=== PATIENT | female | born 1990 | race Caucasian/White ===

== ENCOUNTER → 2019-04-09 16:18 | Outpatient (CLI) | payer MEDICAID, SELFPAY ==
[2019-04-09 15:41] VITALS: BMI 32.5
[2019-04-09 21:51] LABS: Chlamydia Trachomatis by PCR Negative (Negative); Neisserai gonorrhoeae by PCR Negative (Negative); Probe Check PASS; Sample Adequacy Control PASS; Specimen Processing Control PASS
[2019-04-16 14:27] LABS: HPV Reflexed? NOT INDICATED
== END ==
PROVIDERS: Referring Provider Nurse Practitioner Women's Health; Visit Provider Nurse Practitioner Women's Health
DX: Z12.4 Encounter for screening for malignant neoplasm of cervix (principal); Z11.3 Encounter for screening for infections with a predominantly sexual mode of transmission; N89.8 Other specified noninflammatory disorders of vagina
CPT/HCPCS: 87070; 87205; 87491; 87591; 88175; G0145

== ENCOUNTER → 2020-08-15 | Outpatient (CLI) | payer MEDICAID, SELFPAY ==
[2020-08-15 15:02] VITALS: BMI 30.2
[2020-08-19 20:46] LABS: HPV APTIMA, High Risk Positive (Negative)
== END | disposition home or self-care (01) ==
PROVIDERS: Referring Provider Obstetrics & Gynecology; Visit Provider Obstetrics & Gynecology
DX: Z12.4 Encounter for screening for malignant neoplasm of cervix (principal)
CPT/HCPCS: 87624; 88175; G0145

== ENCOUNTER → 2020-09-29 16:23 | Outpatient (CLI) | payer MEDICAID, SELFPAY ==
--- NOTE | 2020-09-29 | CER_PTH ---
PATIENT: NOÉ RAMSEY LOC: [facility] U#:[id number] AGE/SX: 34/F ROOM: RE09/29/[address]: Dr. Pastora Gonzales MD : 1990 BED: DIS: SPEC #: [id number] RECD: 09/29/20 16:03 STATUS: GERMAN CHRISTEN #: [id number] NANCY: 09/29/20 00:[address]: Pastora Gonzales DEPT: SURGICAL PATHOLOGY RECD BY: Jamila Varma ENTERED: 09/30/20 06:23 SP TYPE: CERV OTHR DR: No Primary Care Phys Tissues: A - Uterine cervix, NOS B - Endocervical Procedures: Surgery Specimen Level IV HEADER OPERATION: Colposcopy PRE-OP DIAGNOSIS: LGSIL pap of cervix TISSUE SUBMITTED: A - 8 o'clock, B - ECC MICROSCOPIC DIAGNOSIS A. Cervix, 8 o'clock, biopsy: Severe squamous dysplasia (HGSIL and AARON III). See comment. B. ECC: Fragments of benign ecto- and endocervical epithelium, negative for dysplasia. SHANTI:tip 10/03/2020 COMMENT Immunohistochemistry ([id number]) for surrogate HPV marker (p16) supports the above diagnosis. Case has been reviewed in consultation with Dr. Steward who concurs with the above diagnosis. IDC:AM MICROSCOPIC DESCRIPTION Slides are reviewed. GROSS DESCRIPTION A - Received in fixative is one container labeled with the patient's name and designated 8 o'clock. The specimen consists of multiple irregular fragments of light coughlin soft tissue that in aggregate measure 0.4 x 0.2 x 0.1 cm. The specimen is totally submitted in one cassette. B - Received in fixative is one container labeled with the patient's name and designated ECC. The specimen consists of multiple irregular fragments of coughlin mucoid tissue that in aggregate measure 1 x 0.2 x 0.1 cm. The specimen is totally submitted in one cassette. / SHANTI:tip 09/30/20 TC:5 CPT: 72437 x2
--- NOTE | 2020-09-29 | IMM_PTH ---
PATIENT: NOÉ RAMSEY LOC: [facility] U#:[id number] AGE/SX: 34/F ROOM: RE09/29/[address]: Dr. Pastora Gonzales MD : 1990 BED: DIS: SPEC #: [id number] RECD: 10/03/20 13:52 STATUS: GERMAN REQ #: [id number] NANCY: 09/29/20 00:[address]: Pasotra Gonzales DEPT: IMMUNOHISTOCHEMISTRY RECD BY: Mai Anderson ENTERED: 10/03/20 13:53 SP TYPE: IMMUNO OTHR DR: No Primary Care Phys Tissues: A - Uterine cervix, NOS Procedures: p16 (initial) KI-67 (add) PHYSICIAN & INSTITUTION [place] [address] SPECIMEN INFORMATION: Tissue Source: A - Cervix at 8 o'clock Clinical Info: [facility] Specimen Number: [id number] CPT code: 85704, 75242 METHODOLOGY: Deparaffinized sections of prefer/formalin-fixed tissue or PAP/DQ stained slides are incubated with monoclonal/polyclonal antibodies/oligonucleotide probes. Localization is made via biotin free immunoperoxidase method. Appropriate controls are performed and reacted as expected. Results on target cell population are indicated in the following table: RESULTS: ANTIBODY / CLONE RESULT Block A P16 (E6H4) positive, block staining Ki-67 (30-9) positive, moderate These tests were developed and their performance characteristics determined by [facility]. They may not have been cleared or approved by the U.S. Food and Drug Administration. The FDA has determined that such clearance or approval is not necessary. The above immunohistochemical/dualISH markers are ordered and reviewed by the Pathologist. INTERPRETATION: A. Cervix at 8 o'clock, biopsy: Severe squamous dysplasia. SJ:tip 10/04/2020
[2020-09-29 10:17] VITALS: BMI 29.7
== END ==
PROVIDERS: Referring Provider Obstetrics & Gynecology; Visit Provider Obstetrics & Gynecology
DX: R87.612 Low grade squamous intraepithelial lesion on cytologic smear of cervix (LGSIL) (principal)
CPT/HCPCS: 88305; 88341; 88342

== ENCOUNTER → 2020-10-08 10:34 | Outpatient (CLI) | payer MEDICAID, SELFPAY ==
[2020-09-29 10:17] VITALS: BMI 29.7
--- NOTE | 2020-09-30 08:42 | US_ITS ---
EXAM: US PELVIS TRANSABDOMINAL, COMPLETE CLINICAL INDICATION: dysmenorrhea TECHNIQUE: Transabdominal pelvic ultrasound was performed with grayscale and color Doppler imaging. This report was created using [employer] report [employer] technology. COMPARISON: None. FINDINGS: UTERUS/CERVIX: Uterus measures 9.0 x 6.4 x 4.6 cm. Endometrial complex measures 11 mm. Anteverted. There is no uterine mass. RIGHT OVARY: Right ovary measures 3.6 x 3.0 x 2.0 cm. Blood flow is present in the right ovary. LEFT OVARY: Left ovary measures 3.7 x 2.7 x 1.7 cm. Blood flow is present in the left ovary. FREE FLUID: There is minimal, physiologic quantity of free fluid in the dependent pelvis. BLADDER: Unremarkable as visualized. Wall is normal thickness for degree of distention. US/Pelvic (Non ) IMPRESSION: No adnexal or uterine masses. Electronically Signed: River Lobato MD (Brooks) at 17:44 EDT , Service support ,
--- NOTE | 2020-09-30 08:42 | US_ITS ---
EXAM: US PELVIS TRANSABDOMINAL, COMPLETE CLINICAL INDICATION: dysmenorrhea TECHNIQUE: Transabdominal pelvic ultrasound was performed with grayscale and color Doppler imaging. This report was created using [employer] report [employer] technology. COMPARISON: None. FINDINGS: UTERUS/CERVIX: Uterus measures 9.0 x 6.4 x 4.6 cm. Endometrial complex measures 11 mm. Anteverted. There is no uterine mass. RIGHT OVARY: Right ovary measures 3.6 x 3.0 x 2.0 cm. Blood flow is present in the right ovary. LEFT OVARY: Left ovary measures 3.7 x 2.7 x 1.7 cm. Blood flow is present in the left ovary. FREE FLUID: There is minimal, physiologic quantity of free fluid in the dependent pelvis. BLADDER: Unremarkable as visualized. Wall is normal thickness for degree of distention. US/Transvaginal Non- IMPRESSION: No adnexal or uterine masses. Electronically Signed: River Lobato MD (Brooks) at 17:44 EDT , Service support ,
== END ==
PROVIDERS: Referring Provider Obstetrics & Gynecology; Visit Provider Obstetrics & Gynecology
DX: N94.6 Dysmenorrhea, unspecified (principal)
CPT/HCPCS: 76830; 76856

== ENCOUNTER 2020-11-08 05:15 | Day surgery (SDC) | payer MEDICAID, SELFPAY ==
[2020-10-12 10:36] VITALS: BMI 29.7
[2020-10-24 12:59] VITALS: BMI 29.9
[2020-11-07 13:57] LABS: Absolute Lymphocyte Count 2.96 X10^3/uL (0.83-4.51); Absolute Neutrophil Count 3.7 X10^3/uL (2.0-7.7); Basophil# 0.02 X10^3/uL; Basophil% 0.3 % (0-1); Eosinophil# 0.06 X10^3/uL; Eosinophils% 0.8 % (0-5); Hematocrit 41.2 % (37-47); Hemoglobin 13.3 g/dL (12.0-15.0); Lymphocyte # 2.96 X10^3/ul (0.83-4.51); Lymphocyte % 40.5 % (19-41); Mean Corp Hgb Conc 32.3 g/dL (32-36); Mean Corpuscular Hgb 29.4 pg (27.0-32.0); Mean Corpuscular Volume 90.9 fL (81-99); Mean Platelet Vol. 9.7 fl (6.2-12.0); Monocyte# 0.57 X10^3/uL; Monocyte% 7.8 % (0-10); NRBC Flagged by Analyzer 0 % (0-5); Neutrophil # 3.68 X10^3/uL (2.7-7.7); Neutrophil % 50.5 % (47-70); Platelet Count 234 K/mm3 (150-450); RBC Distribution Width CV 12.9 % (11.6-14.6); RBC Distribution Width SD 43.2 fl (35.1-43.9); Red Blood Count 4.53 M/mm3 (4.2-5.4); White Blood Count 7.3 K/mm3 (4.4-11.0)
[2020-11-07 14:16] LABS: Magnesium 2.3 mg/dL (1.6-2.6)
[2020-11-08] VITALS (15 sets, daily range): BP systolic 113–148; BP diastolic 65–97; PULSE 75–106; RESP 16; TEMP 36.1–37.1; O2SAT 95–100; BMI 30.2
--- NOTE | 2020-11-08 | IMM_PTH ---
PATIENT: NOÉ RAMSEY [place] [facility] [place] U[place][id number] AGE/SX: 30/F ROOM: RE11/08/[address]: Dr. Pastora Gonzales MD : 1990 BED: DIS: 11/08/2020 SPEC #: [id number] RECD: 11/09/20 12:35 STATUS: GERMAN RESari #: [id number] NANCY: 11/08/20 00:[address]: Pastora Gonzales DEPT: IMMUNOHISTOCHEMISTRY RECD BY: Mai Anderson ENTERED: 11/09/20 12:36 SP TYPE: IMMUNO OT DR: No Primary Care Phys Tissues: B - Vulva, NOS Procedures: p16 (initial) KI-67 (add) PHYSICIAN & INSTITUTION [address] [address] SPECIMEN INFORMATION: Tissue Source: B ? Vulvar lesion Clinical Info: AARON III, dysmenorrhea, menorrhagia Specimen Number: [id number] CPT code: 44890, 65837 METHODOLOGY: Deparaffinized sections of prefer/formalin-fixed tissue or PAP/DQ stained slides are incubated with monoclonal/polyclonal antibodies/oligonucleotide probes. Localization is made via biotin free immunoperoxidase method. Appropriate controls are performed and reacted as expected. Results on target cell population are indicated in the following table: RESULTS: ANTIBODY / CLONE RESULT Block B2 P16 (E6H4) negative Ki-67 (30-9) positive, low These tests were developed and their performance characteristics determined by [facility]. They may not have been cleared or approved by the U.S. Food and Drug Administration. The FDA has determined that such clearance or approval is not necessary. The above immunohistochemical/dualISH markers are ordered and reviewed by the Pathologist. INTERPRETATION: B. Vulvar lesion, biopsy: Consistent with condyloma. AM:tip 11/10/2020
--- NOTE | 2020-11-08 | HYST_PTH ---
PATIENT: NOÉ RAMSEY LOC: [facility] [place] U#:[id number] AGE/SX: 30/F ROOM: RE11/08/[address]: Dr. Pastora Gonzales MD : 1990 BED: DIS: 11/08/2020 SPEC #: [id number] RECD: 11/08/20 11:07 STATUS: GERMAN CHRISTEN #: [id number] NANCY: 11/08/20 00:[address]: Pastora Gonzales DEPT: SURGICAL PATHOLOGY RECD BY: Alonso Jansen ENTERED: 11/08/20 11:07 SP TYPE: HYSTERECT OTHR DR: Janis Primary Care Phys Tissues: A - Uterus, NOS B - Vulva, NOS Procedures: Surgery Specimen Level IV Surgery Specimen Level V HEADER OPERATION: ERAS, vaginal hysterectomy, salpingectomy, wide local excision PRE-OP DIAGNOSIS: AARON III, dysmenorrhea, menorrhagia TISSUE SUBMITTED: A ? Uterus, cervix, bilateral tubes, B ? Vulvar lesion MICROSCOPIC DIAGNOSIS A. Uterus, hysterectomy: Cervix ? severe squamous dysplasia (HSIL) and mild chronic inflammation. Endometrium ? transition endometrium. Myometrium ? focal superficial adenomyosis. Fimbrial end of one fallopian tube ? dystrophic microcalcifications. Second fallopian tube ? no pathologic change. B. Vulvar lesion, biopsy: Consistent with condyloma. See comment. AM:tip 11/10/2020 COMMENT A. Dysplasia does not extend to the margins of excision. B. Results from immunohistochemistry ([id number]) for surrogate HPV marker (p16) will be reported separately. Case has been reviewed in consultation with Dr. Rodríguez who concurs with the above diagnosis. IDC:SJ MICROSCOPIC DESCRIPTION Slides are reviewed. GROSS DESCRIPTION A - Received in fixative is one container labeled with the patient's name and designated uterus, cervix and bilateral fallopian tubes. The specimen consists of a hysterectomy specimen consisting of uterus with cervix and detached bilateral fallopian tubes. The uterus with cervix weighs 82 gm and measures 8.5 x 6 x 4 cm. The serosal surface is coughlin, glistening. The ectocervical mucosa is unremarkable. The external os is oval in contour. The endocervical canal measures 3 cm in length and the endocervical mucosa is coughlin, glistening and unremarkable. The triangular endometrial cavity measures 3.5 cm in length and up to 2.5 cm in width. The endometrium is coughlin, glistening without any mass lesion and measures 0.2 cm in thickness. Sections of the uterine wall do not reveal any mass lesion and it measures 2 cm in thickness. The detached bilateral fallopian tubes are not identified as right or left. One of the fallopian tubes consist only of fimbrial end measuring 1.5 x 1.5 x 0.5 cm. The second fallopian tube measures 2.5 cm in length and 0.5 cm in diameter. The fimbrial end is identified. Sections reveal unremarkable cut surfaces. Boiler Plant Operator sections are submitted in eight cassettes as follows: 1 - anterior cervix, 2??posterior cervix, 3 & 4 - anterior uterine wall, 5 & 6 - posterior uterine wall, 7 - one fallopian tube consisting of fimbrial end, entirely submitted, 8 - second fallopian tube, entirely submitted. / : 11/08/20 The rest of the cervix is submitted in six more cassettes, 9-11 - anterior surface 12-14 - posterior surface. / : 11/09/2020 B - Received in fixative is one container labeled with the patient's name and designated vulvar lesion. The specimen consists of a piece of coughlin-white skin measuring 2.5 x 1.7 x 0.5 cm. There is a raised coughlin-brown lesion on the surface measuring 1.5 x 1.4 x 0.5 cm. The specimen is inked, serially sectioned and submitted entirely in two cassettes. Cassette 2 contains the entire lesion. Cassette 1 contains the uninvolved portion of the skin including tips. / :tip 11/08/20 TC:0 CPT: 36161, 30065
[2020-11-08 06:05] LABS: Internal QC Validated? YES +Cl - CLEAR BKGD; Pregnancy, Urine Negative Negative
[2020-11-08] MEDS: Gabapentin 600 MG Tablet PO (06:23)
[2020-11-08] MEDS: Acetaminophen 500 MG Tablet 1000 MG PO ×2 (06:23→12:23)
[2020-11-08] MEDS: Celecoxib 200 MG Capsule 400 MG PO (06:24)
[2020-11-08] MEDS: Phenazopyridine 95 MG Tablet 190 MG PO (06:24)
[2020-11-08] MEDS: dexAMETHasone 10 MG/ML Vial 8 MG IV (06:24)
[2020-11-08] MEDS: Enoxaparin 40 MG/0.4 ML Syringe SC (06:24)
[2020-11-08] MEDS: Scopolamine 1mg/72hr Patch 1 PATCH TD (06:25)
[2020-11-08] MEDS: Lactated Ringers 1,000 ML 70 ML IV (06:26)
[2020-11-08 06:36] LABS: Bedside Glucose 64 mg/dL (70-110)
[2020-11-08] MEDS: Vasopressin 20 UNITS/ML Vial (06:56)
--- NOTE | 2020-11-08 07:23 | HP.PCM_ITS ---
History and Physical Date of Admission: 11/08/20 [facility] [id number] [place] [address] [phone] OFFICE VISITDate of Service: 10/24/20 MR#:[id number]:[id number]: NOÉ RAMSEY #:[id number]:1990 Provider:Dr. Pastora Gonzales MDAge/Sex: 30/F [facility] Vital Signs 10/24/20 Height 5 ft 3 in 10/24/20 Weight: 169 lb 6 oz 10/24/20 BMI 29.9 10/24/20 BP 122/80 H Intake Visit Reasons: TVH BS vulvar lesion Community Organization Aide Required: No Accompanied by: self Allergies No Known Allergies Allergy (Verified 10/24/20 12:59) Medications fluoxetine 20 mg capsule 20 mg PO DAILY #7 cap 10/24/20 [Rx Confirmed 10/24/20] fluoxetine 40 mg capsule 40 mg PO DAILY #30 cap 10/24/20 [Rx Confirmed 10/24/20] naproxen 500 mg tablet 500 mg PO Q12H #30 tablet 10/25/20 [Rx] Is last menstrual period known: No Post menopausal: No Patient : No : No PFSH Medical History Abnormal Pap smear of cervix (Acute) Anxiety and depression (Acute) Surgical History H/O oophorectomy (Acute) H/O tubal ligation (Acute) History of tonsillectomy and adenoidectomy (Acute) Family History Father Cancer Grandmother Breast cancer Social History (Updated 10/27/20 @ 06:[address] Pastora Gonzales MD) current occupational status: unemployed Smoking Status: Current every day smoker alcohol intake: never substance use type: does not use caffeine: Yes what type of physical activity do you participate in: walking seatbelt use: always do you feel safe at home: Yes additional social history: Markel Kay HPI TVH BS vulvar lesion: Details: NOÉ RAMSEY is a 30 year old who presents for proep visit. she is having a TV BS for AUB and AARON III recurrent. Pregancy History 2 Elective abortions Hx Para 2 Spontaneous abortions Hx # Term Pregnancies Ectopic pregnancies Hx # Pregnancies Multiple births # of living children Past Pregnancies Del. Date Name GA/Weeks Outcome Route Bth Weight Gen Labor Lgth Anesthesia Del Locatn Provider FOB Unknown 2007 Daison live - full term Unknown 2011 Елена live - full term ROS Const Constitutional: Denies fatigue, fever(s), headache(s), increased appetite, poor appetite, weight gain or weight loss Eyes Eyes: Reports system reviewed and no additional complaints, except as docu ENT ENT: Reports system reviewed and no additional complaints, except as docu Cardio Card: Reports system reviewed and no additional complaints, except as docu Resp Resp: Reports system reviewed and no additional complaints, except as docu GI GI: Reports as per HPI; denies abdominal pain, constipation, nausea or vomiting : Reports as per HPI; denies difficulty urinating, painful urination, blood in urine, nipple discharge, pelvic pain, urinary frequency, urinary incontinence, urinary hesitancy, urinary urgency, vaginal discharge, vaginal dryness, vaginal odor, vaginal itching or other Musc Musc: Reports system reviewed and no additional complaints, except as docu Skin Skin/Breast: Reports system reviewed and no additional complaints, except as docu; denies nipple discharge Neuro Neuro: Reports system reviewed and no additional complaints, except as docu Psych Psych: Reports system reviewed and no additional complaints, except as docu Exam Const General: cooperative, healthy appearing, comfortable, well developed Orientation: alert [facility] Head: normal to inspection Eyes General: appearance normal, both eyes and all related structures Neck Neck: normal visual inspection, no lymphadenopathy Neck mass: No Thyroid: thyroid normal Chest Chest palpation & inspection: normal inspection of the chest Resp Effort & Inspection: normal respiratory effort Auscultation: clear to auscultation bilaterally Cardio Rate: regular rate Rhythm: regular rhythm Heart Sounds: S1 normal, S2 normal, no murmurs GI Inspection: normal to inspection, non-distended Palpation: soft, no hepatosplenomegaly, no guarding, nontender External Female Exam: normal external appearance, normal appearance of the urethra Urethra: normal appearance of the urethra Speculum Exam - Vagina: normal appearance of the vagina, normal vaginal discharge, no lesions Speculum Exam - Cervix: normal appearance of the cervix, nontender Bimanual Exam- Vagina & Uterus: normal bimanual exam, uterine size normal, No cervical tenderness, uterine mobility normal, uterine consistency normal, uterus non-tender, uterus enlarged (10 week size) Bimanual Exam- Adnexa, other: normal adnexae, no adnexal masses Musc Thoracic/Lumbar Spine: thoracic and lumbar spine normal to inspection Skin General: no rashes or lesions noted Neuro General: alert, awake Speech: speech normal Extrem General: normal to inspection Psych Appearance: grossly normal Assessment & Plan Problems 1. Anxiety and depression F41.9; F32.9 failed zoloft and prozac, ordered celexa. counseling encouraged. stable. 2. Metrorrhagia N92.1 see other plan info. us ordered. 3. Dysmenorrhea N94.6 failed OCP in past, plan hysterectomy, await pelvic US to determine route TVH vs LAVH. 4. 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 I have discussed with the patient the risks, benefits, and alternatives of the procedure which include but are not limited to risks of anesthesia, bleeding, infection, possible damage to bowel, bladder, or surrounding vasculature which could lead to additional surgery to evaluate any complications. Patient agrees to procedure and wishes to proceed. ACOG/uptodate references given for additional information regarding procedure. switched to prozac Medications New: fluoxetine (Prozac) 20 mg PO DAILY 7 caps 0RF fluoxetine (Prozac) 40 mg PO DAILY 30 caps 12RF Discontinued: citalopram Discontinued Reason: Order Changed 40 mg PO DAILY 30 tabs 12RF Coding Level of Care Code No Charge Diagnoses Anxiety and depression F41.9; F32.9 Metrorrhagia N92.1 Dysmenorrhea N94.6 AARON III (cervical intraepithelial neoplasia grade III) with severe dysplasia D06.9 UPDATE- I have seen the patient and performed any clinically relevant updates to the history and physical exam. Pastora Gonzales MD
--- NOTE | 2020-11-08 07:24 | OP.PCM_ITS ---
Problems Associated Problem List Diagnoses (1) Vulvar lesion: (2) AARON III (cervical intraepithelial neoplasia grade III) with severe dysplasia: (3) Dysmenorrhea: (4) Metrorrhagia: Report of Operation Date of Procedure: 11/08/20 Pre-Operative Diagnosis: see problem list Post-Operative Diagnosis: same Surgery/Procedure Performed:: TVH BS Description of Surgical Findings:: left vulvar lesion 3 x 4 cm, nl uterus tubes ovaries is support analyst: Anthony Tate Type of Anesthesia: General Special Medications: none Specimen's removed: uterus, tubes Drains: ross Fluids Replaced: crystalloid Description of Procedure: Patient was taken to the operating room and was placed under general anesthesia was prepped and draped in normal sterile fashion in the dorsal lithotomy position. Preoperative antibiotics and SCDs and Ross catheter was placed inside the bladder. Weighted speculum was placed in the vagina and the anterior and posterior lip of the cervix was grasped with 2 Marco clamps and circumferentially injected with dilute vasopressin. A circumferential incision was made with a scalpel and the posterior cul-de-sac was entered into sharply and a longneck speculum was placed. The anterior cul-de-sac was also dissected down and entered into sharply and the uterosacral ligaments were clamped cut and suture ligated bilaterally followed by the cardinal ligaments which were Clamped cut and suture ligated bilaterally with 0 Monocryl. The uterus serially descended and progressive bites were taken bilaterally up to the level of the utero-ovarian ligament bilaterally which was clamped transected and double ligated with 0 Monocryl suture and 0 Vicryl free tie. Bilateral fallopian tubes and ovaries were well visualized and noted be within normal limits and the bilateral fallopian tubes were transected across the base with a Ema clamp and removed and sutured with 0 Vicryl suture. Excellent hemostasis was noted. Posterior peritoneum was reapproximated with 2-0 Vicryl and a modified Dowell stitch was placed through the posterior vaginal cuff and bilateral uterosacral ligaments across the posterior cul-de-sac skimming along to provide apical support to the vagina. The vagina was closed with [id number] 0 Vicryl pop offs including the posterior and anterior peritoneum in the reapproximation. Excellent hemostasis was noted. left vulvar lesion was excised with an elliptical wide local excision, subcutaneous tissue reapproximated with 3-0 monocryl and skin closed with 4-0 monocryl. All instruments removed from the vagina clear urine was noted at the end of the procedure and patient was awoken and taken recovery in stable condition. Grafts/Implants Used: none Complications none Admit VTE Documentation VTE Present on Admission: No VTE Mechan Device Prophylaxis: SCD's VTE Pharm Prophylaxis ordered?: Yes Procedures Urinary/Genital 52xxx-59xxx: 72772 TVH+BS/O <250gr uterus (3x4 cm lesion destroyed/excised, wide local excision)
[2020-11-08] MEDS: Cefazolin 2 GM in 0.9% Normal Saline 100 ML IV (07:28)
[2020-11-08] MEDS: Lactated Ringers 1,000 ML 40 ML IV (07:30)
--- NOTE | 2020-11-08 07:36 | PCM.DC ---
Discharge Instructions Outpatient Procedure Reason For Visit: VAG HYSTER BILAT SALPINGECTOMY,EXC VULVAR LESION Procedure: Hysterectomy, Vaginal Diet Discharge Diet: No restrictions Activity Discharge Activity: Return to Normal Activity, May Not Drive (while taking narcotic pain medications.) and May Shower May resume sexual activity in: 6-8 weeks Dressing / Incision Call your doctor if your incision/area has: Continuous Slow Oozing, Sudden Increased Bleeding, Increased Pain/ Swelling, Increased Redness and Foul Smelling Discharge Call your doctor if you observe: Fever of 101 or Higher, Inability to urinate, Inability to have a bowel movement and Using more than one pad per hour Follow Up Care Please Follow Up With: Pastora Gonzales MD Test Results: Test results from this visit will be discussed in further detail at your follow-up appointment, if applicable. Discharge Plan Admission Primary Reason for Your Visit: vaginal hysterectomy and removal of vaginal lesion Attending Provider: Pastora Gonzales Primary Care Provider: Care Physician,No Primary Instructions Patient Instructions: Laparoscopic Hysterectomy: Your Home Recovery, Caring for Yourself After Hysterectomy Discharge Orders/Prescriptions Prescriptions: New naproxen 250 MG tablet 250 - 500 mg PO Q8H PRN PRN (Reason: MILD PAIN) Qty: 30 RF: 1 oxycodone-acetaminophen [Percocet] 5-325 mg tablet 1 tab PO Q6H PRN (Reason: pain) 7 Days Qty: 20 RF: 0 No Action fluoxetine [Prozac] 40 mg capsule 40 mg PO DAILY Qty: 30 RF: 12 naproxen 500 mg tablet 500 mg PO Q12H Qty: 30 RF: 2 Referrals: Care Physician,No Primary [Primary Care Provider] - Disposition Disposition (needs filled in before D/C Order can be placed): Home, self care
[2020-11-08] MEDS: Ondansetron 4 MG/2 ML Vial IV (07:47)
[2020-11-08] MEDS: Ketorolac 30 MG/ML Syringe IV (11:02)
[2020-11-08 12:57] LABS: Hematocrit 40.9 % (37-47); Hemoglobin 13.3 g/dL (12.0-15.0); Mean Corp Hgb Conc 32.5 g/dL (32-36); Mean Corpuscular Hgb 29.5 pg (27.0-32.0); Mean Corpuscular Volume 90.7 fL (81-99); Mean Platelet Vol. 9.6 fl (6.2-12.0); Platelet Count 205 K/mm3 (150-450); RBC Distribution Width CV 13.1 % (11.6-14.6); RBC Distribution Width SD 43.5 fl (35.1-43.9); Red Blood Count 4.51 M/mm3 (4.2-5.4); White Blood Count 11.3 K/mm3 (4.4-11.0)
[2020-11-08] MEDS: oxyCODONE 5 MG Tablet PO (16:06)
--- NOTE | 2020-11-08 18:19 | SUR.PHASEII ---
patients ride home was notified at 1700 that patient was ready to be discharged. ride showed up at 1820 to pick patient up.
== END 2020-11-08 18:20 | disposition home or self-care (01) ==
LOC: SDC 05:18 → AC 05:19
PROVIDERS: Anesthesiology; Referring Provider Obstetrics & Gynecology; Visit Provider Obstetrics & Gynecology
PROC: (CPT 58260; principal; 2020-11-08 07:10)
DX: D06.9 Carcinoma in situ of cervix, unspecified (principal); N72 Inflammatory disease of cervix uteri; N80.0 Endometriosis of uterus; N90.89 Other specified noninflammatory disorders of vulva and perineum; F41.9 Anxiety disorder, unspecified; F32.9 Major depressive disorder, single episode, unspecified; F17.210 Nicotine dependence, cigarettes, uncomplicated; Z20.822 Contact with and (suspected) exposure to COVID-19; Z79.899 Other long term (current) drug therapy
CPT/HCPCS: 11424; 58262; 36415; 81025; 82962; 83735; 85025; 85027; 86850; 86900; 86901; 87426; 88305; 88307; 88341; 88342; C9803; J7120; J2405

== ENCOUNTER 2020-11-09 16:45 | Emergency (ER) | payer MEDICAID, SELFPAY ==
[2020-11-08 06:18] VITALS: BMI 30.2
[2020-11-09 16:46] VITALS: BP 131/78; PULSE 97; RESP 16; TEMP 36.2; O2SAT 98; BMI 27.4
--- NOTE | 2020-11-09 17:08 | EDS_ITS ---
HPI HPI - Female History of Present Illness Chief Complaint: Vag Bleeding Informant: patient Pain Pain: Positive for Pelvic Pain Onset: Yesterday Timing: Continuous Quality: Positive for Aching Current Severity: Moderate Maximum Severity: Moderate Worsened by: Movement Relieved by: - (remaining still) Bleeding Issue: Positive for Vaginal bleeding Onset: Yesterday Context: Gradual Onset Timing: Continuous Severity: Severe Maximum Severity: Heavy Narrative Narrative: Patient presenting with postoperative bleeding that has gotten worse. She had a vaginal hysterectomy yesterday, the bleeding became heavier today and it became bright red, so she was advised to come to the ER for further evaluation. She denies any near-syncope or syncope. She has been feeling very tired. She has been having a lot of lower abdominal pain since the surgery. She denies any fevers or chills. No vomiting. Normal urination. PFSH PFSH Medical History Abnormal Pap smear of cervix Anemia Anxiety Anxiety and depression Arthritis Back pain Depression Kidney stones Migraine headache Restless legs Smoker Vulvar lesion Home Medications fluoxetine 40 mg capsule 40 mg PO DAILY #30 cap 10/24/20 [Rx Last Taken Unknown] naproxen 500 mg tablet 500 mg PO Q12H #30 tablet 10/25/20 [Rx Last Taken Unknown] naproxen 250 - 500 mg PO Q8H PRN PRN #30 tab 11/08/20 [Rx Last Taken Unknown] oxycodone-acetaminophen [Percocet] 1 tab PO Q6H PRN 7 Days #20 tab 11/08/20 [Rx Last Taken Unknown] Allergy/AdvReac Type Severity Reaction Status Date / Time No Known Allergies Allergy Verified 11/08/20 05:38 Family History Father Cancer Grandmother Breast cancer Surgical History H/O bilateral salpingectomy H/O oophorectomy H/O tubal ligation History of tonsillectomy and adenoidectomy History of total vaginal hysterectomy (TVH) Social History current occupational status: unemployed Smoking Status: Current every day smoker alcohol intake: never substance use type: does not use caffeine: Yes what type of physical activity do you participate in: walking seatbelt use: always do you feel safe at home: Yes additional social history: Markel VAZQUEZ ROS ED Constitutional Constitutional ED: Reports fatigue and malaise; Denies chills or fever(s) Eyes Eyes: Denies change in vision or diplopia ENT ENT ED: Denies rhinorrhea or sore throat Cardiovascular Cardiovascular: Denies chest pain or palpitations Respiratory/Chest Respiratory/Chest: Denies cough or dyspnea Gastrointestinal Gastrointestinal: Reports abdominal pain; Denies diarrhea, nausea or vomiting Genitourinary Genitourinary ED: Reports other Details: vaginal bleeding ; Denies dysuria or hematuria Musculoskeletal Musculoskeletal: Denies back pain or neck pain Integumentary Denies abscess or rash Neurologic Neurologic: Denies headache(s), paresthesias or weakness Psychiatric Psychiatric: Denies anxiety or suicidal thoughts EXAM Physical Exam Const Vital Signs: 11/09/20 16:46 Temperature 97.2 F L Temperature Source Temporal Pulse Rate 97 Respiratory Rate 16 Blood Pressure 131/78 H Blood Pressure Mean 95 Pulse Ox 98 Oxygen Delivery Method Room Air Positive well nourished and well developed General Appearance ED: well developed and NAD HEENT Reports moist mucous membranes and oropharynx normal normocephalic and atraumatic Eyes PERRL and EOMs intact bilaterally Neck full ROM and supple Resp normal respiratory effort and clear to auscultation bilaterally Cardio regular rate, regular rhythm and no murmurs GI non-distended Auscultation: normoactive bowel sounds Palpation: soft and tender other (throughout lower abd/pelvis) Narrative: Left inguinal crease surgical incision benign, without dehiscence or signs of infection or discharge/bleeding External Female Exam: normal appearance of the urethra Speculum Exam - Vagina: other Large clot present and removed, clotted surgical site at the cuff intact with no active bleeding. Back/Spine no CVA tenderness General Back: other FROM ; Negative for CVA tenderness Extremity normal to inspection General Extremety ED: Negative for edema, pulses abnormal or tenderness General Extremity: Negative for edema or pulses abnormal Neuro oriented x3, CN's II-XII intact bilaterally and no sensory deficits noted Sensorium / Orientation: awake and alert Motor Exam: strength 5/5 throughout Skin no rashes or lesions noted and no wounds MDM MDM MDM Narrative Medical decision making narrative: Patient was treated with morphine and prophylactic Zofran prior to doing pelvic exam. Results as above, there is no active bleeding at this time. Her vital signs are normal, her blood counts are normal and stable. I discussed with Dr. Hartman on-call for the patient's research and development chemist, she advises having the patient go home with pelvic rest still, and to call the office in the morning with an update, returning to the ER for any recurrent extensive episodes of bright red bleeding. Lab Data Attestation: I reviewed the patient's lab results. Labs: Laboratory Results - last 24 hr 11/09/20 11/09/20 17:20 17:20 WBC 9.4 RBC 4.34 Hgb 13.1 Hct 39.5 MCV 91.0 MCH 30.2 MCHC 33.2 RDW Std Deviation 42.8 RDW Coeff of Ines 12.8 Plt Count 198 MPV 9.9 Immature Gran % (Auto) 0.400 Neut % (Auto) 58.1 Lymph % (Auto) 33.4 [place] % (Auto) 7.9 Eos % (Auto) 0.1 Baso % (Auto) 0.1 Absolute Neuts (auto) 5.5 Absolute Lymphs (auto) 3.15 Nucleated RBC % 0 Sodium 141 Potassium 3.2 L Chloride 107 Carbon Dioxide 30.0 Anion Gap 4 L BUN 8 Creatinine 0.79 Estim Creat Clear Calc 85.35 Est GFR (MDRD) Af Amer 109 Est GFR (MDRD) Non-Af 90 BUN/Creatinine Ratio 10.1 Glucose 97 Calcium 8.4 L Discharge Plan Triage Chief Complaint: Vag Bleeding ED Provider: Padilla Don Dx/Rx/DC Orders Clinical Impression: Postoperative vaginal bleeding Instructions: ED Post Op Wound Check, Bleeding Prescriptions: No Action fluoxetine [Prozac] 40 mg capsule 40 mg PO DAILY Qty: 30 RF: 12 naproxen 250 MG tablet 250 - 500 mg PO Q8H PRN PRN (Reason: MILD PAIN) Qty: 30 RF: 1 oxycodone-acetaminophen [Percocet] 5-325 mg tablet 1 tab PO Q6H PRN (Reason: pain) 7 Days Qty: 20 RF: 0 naproxen 500 mg tablet 500 mg PO Q12H Qty: 30 RF: 2 Primary Care Provider: Care Physician,No Primary Referrals: Marcanthony,Pastora, MD [STAFF PHYSICIAN] - (call office in AM to give update) Disposition Disposition: Home, self care
[2020-11-09] MEDS: Ondansetron 4 MG/2 ML Vial IV (17:21)
[2020-11-09] MEDS: 0.9% Normal Saline 1,000 ML 999 ML IV (17:21)
[2020-11-09] MEDS: Morphine 4 MG/ML Syringe IV (17:21)
[2020-11-09 17:42] LABS: Absolute Lymphocyte Count 3.15 X10^3/uL (0.83-4.51); Absolute Neutrophil Count 5.5 X10^3/uL (2.0-7.7); Basophil# 0.01 X10^3/uL; Basophil% 0.1 % (0-1); Eosinophil# 0.01 X10^3/uL; Eosinophils% 0.1 % (0-5); Hematocrit 39.5 % (37-47); Hemoglobin 13.1 g/dL (12.0-15.0); Lymphocyte # 3.15 X10^3/ul (0.83-4.51); Lymphocyte % 33.4 % (19-41); Mean Corp Hgb Conc 33.2 g/dL (32-36); Mean Corpuscular Hgb 30.2 pg (27.0-32.0); Mean Platelet Vol. 9.9 fl (6.2-12.0); Monocyte# 0.75 X10^3/uL; Monocyte% 7.9 % (0-10); NRBC Flagged by Analyzer 0 % (0-5); Neutrophil # 5.48 X10^3/uL (2.7-7.7); Neutrophil % 58.1 % (47-70); Platelet Count 198 K/mm3 (150-450); RBC Distribution Width CV 12.8 % (11.6-14.6); RBC Distribution Width SD 42.8 fl (35.1-43.9); Red Blood Count 4.34 M/mm3 (4.2-5.4); White Blood Count 9.4 K/mm3 (4.4-11.0)
[2020-11-09 18:04] LABS: Anion Gap 4 (5-15); BUN 8 mg/dL (7-18); BUN/Creat Ratio 10.1 RATIO (10-20); Calcium,Total 8.4 mg/dL (8.5-10.1); Chloride 107 mmol/L (98-107); Creatinine, Serum 0.79 mg/dL (0.55-1.02); EST Glomerular Filtration Rate 90 mL/min (>60); Est Glom Filt Rate - Afr Amer 109 mL/min (>60); Estimated Creatinine Clearance 85.35 ml/min; Glucose 97 mg/dL (74-106); Potassium 3.2 mmol/L (3.5-5.1); Sodium Level 141 mmol/L (136-145)
[2020-11-09 18:26] VITALS: BP 124/97; PULSE 78; RESP 14; O2SAT 97
== END 2020-11-09 18:27 | disposition home or self-care (01) ==
PROVIDERS: Emergency Provider Emergency Medicine
DX: N99.820 Postprocedural hemorrhage of a genitourinary system organ or structure following a genitourinary system procedure (principal); M19.90 Unspecified osteoarthritis, unspecified site; F17.200 Nicotine dependence, unspecified, uncomplicated; Z79.1 Long term (current) use of non-steroidal anti-inflammatories (NSAID)
CPT/HCPCS: 80048; 85025; 86850; 86900; 86901; 96361; 96374; 96375; 99283; J7030; A4216; J2405

== ENCOUNTER → 2020-12-16 | Outpatient (CLI) | payer MEDICAID, SELFPAY ==
[2020-12-16 14:06] VITALS: BMI 27.4
== END | disposition home or self-care (01) ==
LOC: LABSPEC 16:47
PROVIDERS: Referring Provider Obstetrics & Gynecology; Visit Provider Obstetrics & Gynecology
DX: N89.8 Other specified noninflammatory disorders of vagina (principal)
CPT/HCPCS: 87070; 87077; 87205

== ENCOUNTER 2022-11-22 07:23 | Emergency (ER) | payer MEDICAID, SELFPAY ==
[2022-11-22 07:24] VITALS: BP 131/102; PULSE 83; RESP 16; TEMP 36.2; O2SAT 98; BMI 35.4
[2022-11-22 07:31] VITALS: O2SAT 97
--- NOTE | 2022-11-22 07:42 | EX.ED.VIS.UR ---
HPI HPI - URI History of Present Illness Chief Complaint: Cold Sx Informant: patient Onset/Context/Timing Onset: Yesterday Context: Gradual Onset Timing: Continuous Current Severity: Moderate Maximum Severity: Moderate Associated Symptoms Associated Symptoms: Positive for Nasal Congestion, Headache, Myalgias, Vomiting, Diarrhea, Chest Pain and Nonproductive cough; Negative for Shortness of Breath or Hemoptysis Narrative Narrative: Patient started feeling ill yesterday, subjective fevers and chills, headache, myalgias, cough occasionally productive of clear phlegm, sore throat, and some diffuse chest soreness from coughing and vomiting. No known sick contacts. ROS ROS ED Constitutional Constitutional ED: Reports chills, fever(s) and subjective ENT ENT ED: Reports nasal congestion, rhinorrhea and sore throat; Denies ear pain Cardiovascular Cardiovascular: Reports chest pain; Denies palpitations Respiratory/Chest Respiratory/Chest: Reports cough; Denies dyspnea Gastrointestinal Gastrointestinal: Reports diarrhea and vomiting; Denies abdominal pain Genitourinary Genitourinary ED: Denies dysuria or hematuria Musculoskeletal Musculoskeletal: Reports myalgias; Denies neck pain Integumentary Denies abscess or rash Neurologic Neurologic: Reports headache(s); Denies paresthesias or weakness Psychiatric Psychiatric: Denies depression or suicidal thoughts Endocrine Endocrinology: Denies polydipsia or polyuria PFSH PFS Medical History Abnormal Pap smear of cervix Anemia Anxiety Anxiety and depression Arthritis Back pain Depression Kidney stones Migraine headache Restless legs Smoker Vulvar lesion Home Medications naproxen 250 mg tablet 250 - 500 mg PO Q8H PRN PRN MILD PAIN #30 tabs 11/08/20 [Rx Last Taken Unknown] tramadol 50 mg tablet 50 mg PO DAILY 12/16/20 [History Last Taken Unknown] fluoxetine 40 mg capsule 40 mg PO DAILY DEPRESSION #30 caps 04/06/21 [Rx Last Taken Unknown] Allergy/AdvReac Type Severity Reaction Status Date / Time No Known Allergies Allergy Verified 11/22/22 07:23 Family History Father Cancer Grandmother Breast cancer Surgical History H/O bilateral salpingectomy H/O oophorectomy H/O tubal ligation History of tonsillectomy and adenoidectomy History of total vaginal hysterectomy (TVH) Social History current occupational status: unemployed Smoking Status: Current every day smoker tobacco type: cigarettes alcohol intake: never substance use type: does not use caffeine: Yes what type of physical activity do you participate in: walking seatbelt use: always do you feel safe at home: Yes additional social history: Markel Kay EXAM Physical Exam Const Vital Signs: 11/22/22 07:24 11/22/22 07:31 Temperature 97.1 F L Temperature Source Temporal Pulse Rate 83 Respiratory Rate 16 Respiratory Effort Normal Non-Labored Respiratory Depth Normal Respiratory Pattern Normal Blood Pressure 131/102 H Blood Pressure Mean 111 Pulse Ox 98 Oxygen Delivery Method Room Air Room Air Positive well nourished and well developed General Appearance ED: well developed and NAD HEENT Reports moist mucous membranes HEENT Narrative: TMs normal bilaterally. Throat normal tonsils normal no trismus normocephalic and atraumatic Throat: Negative for posterior oropharynx abnormal Eyes PERRL and EOMs intact bilaterally Neck no lymphadenopathy, supple and no meningeal signs Resp normal respiratory effort and clear to auscultation bilaterally Cardio no murmurs Rate: regular rate; Negative for tachycardic Rhythm: regular rhythm GI non-tender, non-distended and no masses Inspection: Negative for abdominal distention Back/Spine no CVA tenderness and normal ROM Extremity normal to inspection and full ROM Neuro oriented x3, CN's II-XII intact bilaterally and no sensory deficits noted Sensorium / Orientation: alert Motor Exam: strength 5/5 throughout Psych mental status grossly normal Skin Lesions: no lesions Rashes: no rashes MDM MDM MDM Narrative Medical decision making narrative: Is well-appearing with normal vital signs and a normal exam, consistent with viral etiology. COVID and influenza swabs sent and negative. She was given Toradol for symptoms and instructions for supportive care and follow-up, and we discussed reasons to return. Discharge Plan Triage Chief Complaint: Cold Sx ED Provider: Padilla Don Dx/Rx/DC Orders Clinical Impression: Acute viral syndrome Instructions: ED Viral Syndrome (Adult) Prescriptions: No Action tramadol 50 mg tablet 50 mg PO DAILY naproxen 250 MG tablet 250 - 500 mg PO Q8H PRN PRN (Reason: MILD PAIN) Qty: 30 1RF fluoxetine 40 mg capsule 40 mg PO DAILY Qty: 30 12RF Primary Care Provider: Care Physician,No Primary Referrals: Care Physician,No Primary [Primary Care Provider] - Doctor,Your [Non-Staff] - Disposition Disposition: Home, Self Care
[2022-11-22] MEDS: Metoclopramide 10 MG Tablet PO (08:10)
[2022-11-22] MEDS: Ketorolac 60 MG/2 ML Vial IM (08:10)
== END 2022-11-22 10:34 | disposition home or self-care (01) ==
PROVIDERS: Emergency Provider Emergency Medicine; Visit Provider Emergency Medicine
DX: B34.9 Viral infection, unspecified (principal); R19.7 Diarrhea, unspecified; R51.9 Headache, unspecified; F17.210 Nicotine dependence, cigarettes, uncomplicated
CPT/HCPCS: 87428; 96372; 99282

== ENCOUNTER → 2022-12-24 | Outpatient (CLI) | payer MEDICAID, SELFPAY ==
[2022-12-28 18:07] LABS: HPV APTIMA, High Risk Negative (Negative)
== END | disposition home or self-care (01) ==
LOC: LABSPEC 15:05
PROVIDERS: Referring Provider Nurse Practitioner Women's Health; Visit Provider Nurse Practitioner Women's Health
DX: N89.8 Other specified noninflammatory disorders of vagina (principal); Z90.710 Acquired absence of both cervix and uterus
CPT/HCPCS: 87070; 87077; 87205; 87624; 88175; G0145

== ENCOUNTER → 2023-05-02 | Outpatient (CLI) | payer MEDICAID, SELFPAY ==
[2023-05-07 09:08] LABS: HPV APTIMA, High Risk Negative (Negative)
== END | disposition home or self-care (01) ==
LOC: LABSPEC 12:47
PROVIDERS: Referring Provider Obstetrics & Gynecology; Visit Provider Obstetrics & Gynecology
DX: Z12.4 Encounter for screening for malignant neoplasm of cervix (principal); Z90.710 Acquired absence of both cervix and uterus
CPT/HCPCS: 87624; 88175; G0145

== ENCOUNTER → 2023-05-09 | Outpatient (CLI) | payer MEDICAID, SELFPAY ==
--- NOTE | 2023-05-09 15:56 | US_ITS ---
INDICATION: pelvic pain. Hysterectomy and left oophorectomy 2020. EXAMINATION: Ultrasound US Pelvis Non OB Complete With Transvaginal Imaging COMPARISON: Pelvic ultrasound 10/08/2020. FINDINGS: 97 grayscale ultrasound images of the pelvis obtained both transabdominally and transvaginally. In addition dedicated ovarian color Doppler was performed. UTERUS: Absent as per history. ADNEXA: Few scattered bilateral ovarian follicles measuring up to 1.4 cm on the right. Flow is documented to bilateral ovaries by color Doppler. Adequately distended urinary bladder is unremarkable, 212 cc volume. No significant free fluid. US/Transvaginal Non- IMPRESSION: Few scattered bilateral ovarian follicles measuring up to 1.4 cm on the right. Otherwise unremarkable pelvic ultrasound in this posthysterectomy patient. Electronically Signed: Earnest Garsia MD at 23:40 EDT ,
== END | disposition home or self-care (01) ==
LOC: US 15:54
PROVIDERS: Visit Provider Obstetrics & Gynecology
DX: R10.2 Pelvic and perineal pain (principal)
CPT/HCPCS: 76830; 76856

== ENCOUNTER 2023-05-18 16:40 | Emergency (ER) | payer MEDICAID, SELFPAY ==
[2023-05-18 16:41] VITALS: PULSE 94; RESP 14; TEMP 36.4; O2SAT 100; BMI 37.5
[2023-05-18 16:43] VITALS: BP 130/93
--- NOTE | 2023-05-18 17:04 | EX.ED.UPPERE ---
HPI History of Present Illness Chief Complaint: Upper Extremity Injury Informant: patient Narrative Narrative: Patient excellently got her right small finger injured wrestling with her son about an hour ago. She is right-hand dominant. Hurts to move it. She states its only that finger that hurts and nothing else hurts. She is not on any blood thinners. PFSH PFS Medical History Abnormal Pap smear of cervix Anemia Anxiety Anxiety and depression Arthritis Back pain Depression Kidney stones Migraine headache Restless legs Smoker Home Medications venlafaxine 75 mg capsule,extended release 24 hr (Effexor XR) 75 mg PO DAILY #30 caps 05/02/23 [Rx Last Taken Unknown] Allergy/AdvReac Type Severity Reaction Status Date / Time No Known Allergies Allergy Verified 05/18/23 16:41 Family History Father Cancer Grandmother Breast cancer Surgical History H/O bilateral salpingectomy H/O oophorectomy H/O tubal ligation History of tonsillectomy and adenoidectomy History of total vaginal hysterectomy (TVH) Social History number of children: 2 current occupational status: employed current occupation: [employer] in [employer] Smoking Status: Current every day smoker tobacco type: cigarettes alcohol intake: never substance use type: does not use caffeine: Yes what type of physical activity do you participate in: walking seatbelt use: always do you feel safe at home: Yes additional social history: Markel Kay GEORGE ROS ED Constitutional Constitutional ED: Denies chills or fever(s) Gastrointestinal Gastrointestinal: Denies nausea or vomiting Musculoskeletal Musculoskeletal: Reports other Details: See history of present illness. ; Denies back pain, myalgias or neck pain Integumentary Denies Abrasions or rash Neurologic Neurologic: Denies paresthesias or weakness Hematologic/Lymphatic Hematologic/Lymphatic: Denies easy bleeding or easy bruising EXAM Physical Exam Narrative Exam Narrative: General: Patient is awake alert sitting comfortably in bed no acute distress. HEENT shows no sign of trauma. Cardiorespiratory shows easy unlabored breathing with normal saturations and normal heart rate. Extremities there is a little bit of early ecchymosis dorsally over the right small finger mostly over the proximal interphalangeal joint. No deformity is noted. Mild swelling. Extensor as well as both flexor tendons are intact. Range of motion does cause pain though. Const Vital Signs: 05/18/23 16:41 05/18/23 16:43 Temperature 97.6 F L Temperature Source Temporal Pulse Rate 94 Respiratory Rate 14 Blood Pressure 130/93 H Blood Pressure Mean 105 Pulse Ox 100 Oxygen Delivery Method Room Air MDM MDM MDM Narrative Medical decision making narrative: My independent interpretation of the patient's x-ray of the right small finger 3 views do show a nondisplaced fracture of the middle phalanx of the right small finger. This is consistent with final read. Procedure: Splinting of right small finger Patient was placed in a custom formed fiberglass ulnar gutter type splint involving the palm small finger and ring finger. This allowed motion of the wrist. This was placed in slight volar angulation of the fingers. This is to hold this well until she can be seen in follow-up. We discussed reasons to return and need for follow-up. This will need repeat imaging. As long as it stays in the current position it would likely heal well and will hopefully not need surgery. Light duty will be given also. Discharge Plan Triage Chief Complaint: Upper Extremity Injury ED Provider: Navi Wiggins Dx/Rx/DC Orders Clinical Impression: Closed fracture of middle phalanx of right little finger Instructions: ED Fracture, Finger, Closed Prescriptions: No Action venlafaxine [Effexor XR] 75 mg capsule,extended release 24hr 75 mg PO DAILY Qty: 30 12RF Stand Alone Forms: Work Status Form Primary Care Provider: Care Physician,No Primary Referrals: Naresh Ferris DO [Med Staff - Active Staff] - 1 Week (He will need repeat evaluation and repeat x-rays to make sure this is healing correctly.) Care Physician,No Primary [Primary Care Provider] - Disposition Disposition: Home, Self Care
--- NOTE | 2023-05-18 17:05 | RAD_ITS ---
STUDY: X-RAY - RIGHT HAND, ATTENTION FIFTH FINGER REASON FOR EXAM: Female, 32 years old. Wrestling injury, pain and swelling TECHNIQUE: 3 view(s) of the finger were obtained. COMPARISON: None. FINDINGS: Normal metacarpal head. Normal metacarpophalangeal joint. Normal proximal phalanx. Longitudinal fracture of the middle phalanx extends to the proximal articular surface, without significant displacement. Normal distal phalanx. Normal proximal interphalangeal joint. Normal distal interphalangeal joint. Soft tissue swelling diffusely. RAD/Finger(s) Min 2 Views IMPRESSION: Fifth middle phalanx fracture. Electronically Signed: River Lobato MD ([place]) at 17:26 EST ,
== END 2023-05-18 19:13 | disposition home or self-care (01) ==
PROVIDERS: Emergency Provider Emergency Medicine; Visit Provider Emergency Medicine
DX: S62.656A Nondisplaced fracture of middle phalanx of right little finger, initial encounter for closed fracture (principal); F17.210 Nicotine dependence, cigarettes, uncomplicated; X58.XXXA Exposure to other specified factors, initial encounter
CPT/HCPCS: 29130; 73140; 99282

== ENCOUNTER 2023-08-31 16:05 | Emergency (ER) | payer OTHER, MEDICAID, SELFPAY ==
[2023-08-31 16:06] VITALS: BP 118/97; PULSE 88; RESP 16; TEMP 36.4; O2SAT 98; BMI 39.3
--- NOTE | 2023-08-31 16:09 | EX.ED.DYSGE1 ---
HPI History of Present Illness Chief Complaint: General Illness Informant: patient Onset/Context/Timing Onset: Yesterday Context: Sudden Onset Timing: Continuous Quality: Cramping, stabbing Location: Diffuse abdomen Worsened by: Nothing Relieved by: Nothing Narrative Narrative: Patient presents with nausea, vomiting, cough, and shortness of breath that began last night. Patient states it began rather suddenly. Patient states she has been having some cramping and stabbing pain across her entire abdomen. Patient missed a fever of 102. Patient states she feels weak all over. Patient admits to headache and pain in her back. Patient admits to a cough but denies any sputum production. Patient also admits to a sore throat. Patient states nothing makes her symptoms better nothing makes them worse. PFSH PFSH Medical History Abnormal Pap smear of cervix Anemia Anxiety Anxiety and depression Arthritis Back pain Depression Kidney stones Migraine headache Restless legs Smoker Home Medications venlafaxine 75 mg capsule,extended release 24 hr (Effexor XR) 75 mg PO DAILY #30 caps 05/02/23 [Rx Last Taken Unknown] fluconazole 150 mg tablet 150 mg PO ONCE #1 TAB 08/12/23 [Rx Last Taken Unknown] ondansetron 4 mg disintegrating tablet 4 mg PO Q8H PRN PRN Nausea #10 tabs 08/31/23 [Rx Last Taken Unknown] Allergy/AdvReac Type Severity Reaction Status Date / Time No Known Allergies Allergy Verified 08/31/23 16:06 Family History Father Cancer Grandmother Breast cancer Surgical History H/O bilateral salpingectomy H/O oophorectomy H/O tubal ligation History of tonsillectomy and adenoidectomy History of total vaginal hysterectomy (TVH) Social History (Updated 08/31/23 @ 16:[address] Douglas Veliz DO) number of children: 2 current occupational status: employed current occupation: [employer] in [employer] Smoking Status: Current every day smoker tobacco type: e-cigarettes Electronic Cigarette Use: with nicotine alcohol intake: never substance use type: does not use caffeine: Yes what type of physical activity do you participate in: walking seatbelt use: always do you feel safe at home: Yes additional social history: Markel VAZQUEZ ROS ED Constitutional Constitutional ED: Reports fever(s); Denies chills Eyes Eyes: Denies blurry vision or change in vision ENT ENT ED: Reports sore throat; Denies rhinorrhea Cardiovascular Cardiovascular: Denies chest pain or palpitations Respiratory/Chest Respiratory/Chest: Reports cough and dyspnea Gastrointestinal Gastrointestinal: Reports abdominal pain, diarrhea, nausea and vomiting; Denies melena Genitourinary Genitourinary ED: Denies dysuria or hematuria Musculoskeletal Musculoskeletal: Reports back pain; Denies neck pain Integumentary Denies abscess or rash Neurologic Neurologic: Reports headache(s) and weakness Allergic/Immunologic Allergic/Immunologic ED: Denies mouth swelling or urticaria EXAM Physical Exam Const Vital Signs: 08/31/23 16:06 08/31/23 16:41 Temperature 97.5 F L Temperature Source Temporal Pulse Rate 88 Respiratory Rate 16 Respiratory Effort Normal Respiratory Pattern Normal Blood Pressure 118/97 H Blood Pressure Mean 104 Pulse Ox 98 Oxygen Delivery Method Room Air Positive well nourished and well developed General Appearance ED: well developed and NAD HEENT Reports moist mucous membranes Neck supple and no JVD Resp normal respiratory effort and clear to auscultation bilaterally Cardio regular rate and regular rhythm GI non-tender and non-distended Palpation: soft Neuro oriented x3, CN's II-XII intact bilaterally and no sensory deficits noted Sensorium / Orientation: alert Motor Exam: strength 5/5 throughout Psych mental status grossly normal MDM MDM MDM Narrative Medical decision making narrative: Differential diagnosis includes gastroenteritis, pneumonia, pneumothorax, viral infection, pancreatitis, urinary tract infection, dehydration, and electrolyte abnormality. Chest x-ray will be obtained to assess for pneumonia and pneumothorax. COVID-19, influenza, and RSV PCR will be obtained to assess for viral infection. CBC will be obtained to assess for leukocytosis and anemia. Comprehensive metabolic profile will be obtained to assess for hepatic function, renal function, and electrolyte abnormality. Lipase will be obtained to assess for pancreatitis. Urinalysis will be obtained to assess for urinary tract infection and hematuria. Lab Data Attestation: I reviewed the patient's lab results. Lab results narrative: CBC was reviewed and was within normal limits. Comprehensive metabolic profile was reviewed and was within normal limits. Lipase was reviewed and was normal. Urinalysis was reviewed. There is no evidence of urinary tract infection or hematuria. COVID-19 PCR was reviewed and was negative. Influenza PCR was reviewed and was negative for influenza A and influenza B. RSV PCR was reviewed and was negative. Labs: Laboratory Results - last 24 hr 08/31/23 16:38 WBC 6.7 RBC 4.64 Hgb 13.9 Hct 41.3 MCV 89.0 MCH 30.0 MCHC 33.7 RDW Std Deviation 41.6 RDW Coeff of Ines 12.8 Plt Count 204 MPV 9.4 Immature Gran % (Auto) 0.300 Neut % (Auto) 48.9 Lymph % (Auto) 40.3 [place] % (Auto) 7.4 Eos % (Auto) 2.8 Baso % (Auto) 0.3 Absolute Neuts (auto) 3.3 Absolute Lymphs (auto) 2.71 Nucleated RBC % 0 Sodium 145 Potassium 3.8 Chloride 114 H Carbon Dioxide 29.0 Anion Gap 2 L BUN 8 Creatinine 0.81 Estim Creat Clear Calc 110.80 Est GFR (MDRD) Af Amer 104 Est GFR (MDRD) Non-Af 86 BUN/Creatinine Ratio 9.9 L Glucose 113 H Calcium 8.4 L Total Bilirubin 0.40 AST 23 ALT 30 Alkaline Phosphatase 59 Total Protein 5.5 L Albumin 2.8 L Globulin 2.7 Albumin/Globulin Ratio 1.0 Lipase 30 Urine Color Yellow Urine Clarity Clear Urine pH 5.0 Ur Specific [place] 1.030 Urine Protein 15 H Urine Glucose (UA) 50 H Urine Ketones 5 H Urine Occult Blood 10 H Urine Nitrite Negative Urine Bilirubin Negative Urine Urobilinogen Normal Ur Leukocyte Esterase 25 H Urine RBC 0 SEEN Urine WBC 0-5 SEEN Ur Squamous Epith Cells 5-10 SEEN Urine Bacteria 1+ Urine Mucus RARE Treatment and Re-Evaluation :: Patient was given IV fluids. Patient was advised of her findings. Patient was advised that this is most likely a viral illness. Patient was instructed to drink plenty of fluids. Patient was instructed take Tylenol or ibuprofen as needed for any pain or fevers. Patient was instructed to follow-up with her primary care physician in 5 to 7 days. Patient understood and was agreeable with the plan. All questions were answered. Discharge Plan Triage Chief Complaint: General Illness ED Provider: Douglas Veliz Dx/Rx/DC Orders Clinical Impression: Viral illness Instructions: ED Viral Syndrome (Adult) Prescriptions: New ondansetron [ondansetron] 4 mg tablet,disintegrating 4 mg PO Q8H PRN PRN (Reason: Nausea) Qty: 10 0RF No Action venlafaxine [Effexor XR] 75 mg capsule,extended release 24hr 75 mg PO DAILY Qty: 30 12RF fluconazole 150 mg tablet 150 mg PO ONCE Qty: 1 0RF Primary Care Provider: Care Physician,No Primary Referrals: Nicholas Cesar MD [Med Staff - Meteorologist Liaison] - 5-7 Days Care Physician,No Primary [Primary Care Provider] - Disposition Disposition: Home, Self Care
[2023-08-31] MEDS: 0.9% Normal Saline (1000mL) 1,000 ML 1000 ML IV (16:36)
[2023-08-31 16:44] LABS: Red Blood Cells-Urine 0 SEEN /hpf (0-5)
[2023-08-31 16:45] LABS: Absolute Lymphocyte Count 2.71 X10^3/uL (0.83-4.51); Absolute Neutrophil Count 3.3 X10^3/uL (2.0-7.7); Basophil# 0.02 X10^3/uL; Basophil% 0.3 % (0-1); Eosinophil# 0.19 X10^3/uL; Eosinophils% 2.8 % (0-5); Hematocrit 41.3 % (37-47); Hemoglobin 13.9 g/dL (12.0-15.0); Lymphocyte # 2.71 X10^3/ul (0.83-4.51); Lymphocyte % 40.3 % (19-41); Mean Corp Hgb Conc 33.7 g/dL (32-36); Mean Platelet Vol. 9.4 fl (6.2-12.0); Monocyte% 7.4 % (0-10); NRBC Flagged by Analyzer 0 % (0-5); Neutrophil # 3.29 X10^3/uL (2.7-7.7); Neutrophil % 48.9 % (47-70); Platelet Count 204 K/mm3 (150-450); RBC Distribution Width CV 12.8 % (11.6-14.6); RBC Distribution Width SD 41.6 fl (35.1-43.9); Red Blood Count 4.64 M/mm3 (4.2-5.4); White Blood Count 6.7 K/mm3 (4.4-11.0)
[2023-08-31 16:46] LABS: Color, Urine Yellow (Yellow); Glucose, Dipstick 50 mg/dl (Normal); Ketone-Dipstick 5 mg/dl (Negative); Leukocyte Esterase-Dipstick 25 /ul (Negative); Nitrite-Dipstick Negative (Negative); Occult Blood-Urine 10 /ul (Negative); Protein-Dipstick 15 mg/dl (Negative); Urine Bilirubin Dipstick Negative (Negative); Urine Clarity Clear (Clear); Urine Urobilinogen Normal (Normal)
[2023-08-31 16:55] LABS: Bacteria 1+ /hpf (None Seen); Mucous, Urine RARE /hpf (<or=2+); Squamous Epithelial Cells - UA 5-10 SEEN /hpf (5-10); White Blood Cells 0-5 SEEN /hpf (0-5)
--- OUTSIDE RECORDS SUMMARY | 2023-08-31 16:57 | XMS RPT_ITS | CCD ---
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 [facility] <item><item><item><item> Privacy Markings (unrecogniz ed section and content) Section Author: Alexa Leone PROHIBITION ON REDISCLOSURE OF CONFIDENTIAL INFORMATION This notice accompanies a disclosure of information concerning a client made to you with the consent of such client. Section Author: Alexa Leone PROHIBITION ON REDISCLOSURE OF CONFIDENTIAL INFORMATION This notice accompanies a disclosure of information concerning a client made to you with the consent of such client. Section Author: Alexa Leone PROHIBITION ON REDISCLOSURE OF CONFIDENTIAL INFORMATION This notice accompanies a disclosure of information concerning a client made to you with the consent of such client. Section Author: Alexa Leone PROHIBITION ON REDISCLOSURE OF CONFIDENTIAL INFORMATION This notice accompanies a disclosure of information concerning a client made to you with the consent of such client. FOR RECORDS PERTAINING TO PATIENTS WHO ARE OR HAVE BEEN ENROLLED IN A CHEMICAL DEPENDENCY/SUBSTANCEABUSE PROGRAM, SOME INFORMATION MAY BE OMITTED. This clinical summary was aggregated from multiple sources. Caution should be exercised in using it in the provision of clinical care. This summary normalizes information from multiple sources, and as a consequence, information in this document may materially change the coding, format and clinical context of patient data. In addition, data may be omitted in some cases. CLINICAL DECISIONS SHOULD BE BASED ON THE PRIMARY CLINICAL RECORDS. [facility]. provides no warranty or guarantee of the accuracy or completeness of information in this document.
[2023-08-31 17:02] LABS: AST(SGOT) 23 U/L (15-37); Alanine Aminotransfer ALT/SGPT 30 U/L (13-56); Albumin, Serum 2.8 g/dL (3.2-5.0); Alkaline Phosphatase 59 U/L (45-117); Anion Gap 2 (5-15); BUN 8 mg/dL (7-18); BUN/Creat Ratio 9.9 RATIO (10-20); Calcium,Total 8.4 mg/dL (8.5-10.1); Chloride 114 mmol/L (98-107); Creatinine, Serum 0.81 mg/dL (0.55-1.02); EST Glomerular Filtration Rate 86 mL/min (>60); Est Glom Filt Rate - Afr Amer 104 mL/min (>60); Globulin 2.7 g/dL (2.2-4.2); Glucose 113 mg/dL (74-106); Lipase 30 U/L (13-75); Potassium 3.8 mmol/L (3.5-5.1); Protein, Total 5.5 g/dL (6.4-8.2); Sodium Level 145 mmol/L (136-145)
[2023-08-31 18:34] VITALS: BP 118/82; PULSE 89; RESP 14; TEMP 36.6; O2SAT 100
== END 2023-08-31 18:35 | disposition home or self-care (01) ==
PROVIDERS: Emergency Provider Emergency Medicine; Visit Provider Emergency Medicine
DX: B34.9 Viral infection, unspecified (principal); R11.2 Nausea with vomiting, unspecified; R51.9 Headache, unspecified; M54.9 Dorsalgia, unspecified; R06.02 Shortness of breath; F17.290 Nicotine dependence, other tobacco product, uncomplicated; R05.9 Cough, unspecified; R50.9 Fever, unspecified; R10.9 Unspecified abdominal pain; R19.7 Diarrhea, unspecified
CPT/HCPCS: 80053; 81001; 83690; 85025; 87631; 96360; 99283; J7030; A4216

== ENCOUNTER 2023-09-14 05:14 | Emergency (ER) | payer OTHER, MEDICAID, SELFPAY ==
[2023-09-14 05:15] VITALS: BP 132/97; PULSE 75; RESP 16; TEMP 35.9; O2SAT 99; BMI 39.8
--- NOTE | 2023-09-14 05:41 | EDS_ITS ---
HPI History of Present Illness Chief Complaint: Edema Detail of Chief Complaint: Not edema but burning sensation in feet and numbness left foot Informant: patient Occured/Mechanism Comment: There is no history of trauma. Patient informed me that she does stand for up to 10 hours at work. Onset/Context/Timing Onset: Days (Approximately 10 to 11 days) Context: Sudden Onset Timing: Continuous and Waxes and wanes Quality of Pain: Aching and Burning Location: Right and left foot. Left foot greater than right Current Severity: Mild Maximum Severity: Moderate Worsened by: Palpation Relieved by: Nothing Associated Symptoms Associated Symptoms: Positive for Parasthesia (Medial left foot); Negative for Weakness or Loss of Funtion Narrative Narrative: Patient is a 33-year-old woman who presents with burning sensation in her feet and numbness medial aspect of the left foot. Pain is exacerbated by palpation. She denies history of diabetes. She denies history of peripheral arterial disease. She denies symptoms of claudication. She has not noted a rash. 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 Patient denies swelling of her lower extremities, discoloration or pain in the calf or thigh region. Tetanus Immunization: Unknown Prior similar symptoms: No Recent Illness/Hospitalization: No PFSH PFSH Medical History Abnormal Pap smear of cervix Anemia Anxiety Anxiety and depression Arthritis Back pain Depression Kidney stones Migraine headache Restless legs Smoker Home Medications gabapentin 300 mg capsule 300 mg PO BID #90 caps 09/14/23 [Rx Last Taken Unknown] Allergy/AdvReac Type Severity Reaction Status Date / Time No Known Allergies Allergy Verified 09/14/23 05:15 Family History Father Cancer Grandmother Breast cancer Surgical History H/O bilateral salpingectomy H/O oophorectomy H/O tubal ligation History of tonsillectomy and adenoidectomy History of total vaginal hysterectomy (TVH) Social History number of children: 2 current occupational status: employed current occupation: [employer] in [place] Smoking Status: Current every day smoker tobacco type: cigarettes and e- cigarettes Electronic Cigarette Use: with nicotine alcohol intake: never substance use type: does not use caffeine: Yes what type of physical activity do you participate in: walking seatbelt use: always do you feel safe at home: Yes additional social history: Markel VAZQUEZ ROS ED Constitutional Constitutional ED: Denies chills, fever(s), subjective, sweats or weight loss Eyes Eyes: Denies blurry vision, change in vision or diplopia ENT ENT ED: Denies ear pain, rhinorrhea or sore throat Cardiovascular Cardiovascular: Denies chest pain, orthopnea, palpitations, paroxysmal nocturnal dyspnea or racing heartbeat Respiratory/Chest Respiratory/Chest: Denies cough, dyspnea, dyspnea on exertion, orthopnea or paroxysmal nocturnal dyspnea Gastrointestinal Gastrointestinal: Denies abdominal pain, nausea or vomiting Musculoskeletal Musculoskeletal: Denies arthralgias, back pain, myalgias or neck pain Integumentary Reports rash and other Details: Rashes remarkable for dyshidrotic eczema. Neurologic Neurologic: Reports paresthesias; Denies headache(s) or weakness Endocrine Endocrinology: Denies polydipsia, polyphagia or polyuria EXAM Physical Exam Const Vital Signs: 09/14/23 05:15 09/14/23 05:15 Temperature 96.6 F L Temperature Source Temporal Pulse Rate 75 Respiratory Rate 16 Respiratory Pattern Normal Blood Pressure 132/97 H Blood Pressure Mean 108 Pulse Ox 99 Positive well nourished, well developed and obese General Appearance ED: well developed Nutritional Appearance: obese HEENT Reports moist mucous membranes normocephalic and atraumatic Eyes PERRL Eyes Narrative: Extraocular's intact. Conjunctive is pink. Neck full ROM and supple Chest Wall inspection of chest normal and palpation of chest normal Resp normal respiratory effort, no retractions and clear to auscultation bilaterally GI no masses; Negative for non-tender Auscultation: normoactive bowel sounds Palpation: soft Extremity normal to inspection and full ROM General Extremety ED: Negative for cyanosis or edema General Extremity: Negative for cyanosis or edema Neuro oriented x3, CN's II-XII intact bilaterally and moves all extremities Sensorium / Orientation: alert Motor Exam: strength 5/5 throughout Plantar Reflex: Downgoing: bilateral Psych mental status grossly normal Skin no wounds Skin Narrative: Dry skin MDM MDM MDM Narrative Medical decision making narrative: Patient's history and exam is suggestive of neuropathy. Uncertain cause. Will treat with gabapentin. Will obtain BMP to assess for hyperglycemia/diabetes. CBC to rule out anemia. Lab Data Attestation: I reviewed the patient's lab results. Lab results narrative: CBC is unremarkable. There is slight lymphocytosis. Basic metabolic panel is unremarkable. Glucose slightly evaded with normal CO2 anion gap. ESR is normal. Labs: Laboratory Results - last 24 hr 09/14/23 05:37 WBC 6.7 RBC 4.73 Hgb 13.9 Hct 41.9 MCV 88.6 MCH 29.4 MCHC 33.2 RDW Std Deviation 41.6 RDW Coeff of Ines 12.6 Plt Count 266 MPV 9.6 Immature Gran % (Auto) 0.300 Neut % (Auto) 43.6 L Lymph % (Auto) 45.1 H Woodward % (Auto) 8.5 Eos % (Auto) 1.9 Baso % (Auto) 0.6 Absolute Neuts (auto) 2.9 Absolute Lymphs (auto) 3.01 Nucleated RBC % 0 ESR 5 Sodium 142 Potassium 3.9 Chloride 112 H Carbon Dioxide 26.0 Anion Gap 4 L BUN 8 Creatinine 0.63 Estim Creat Clear Calc 143.49 Est GFR (MDRD) Af Amer 139 Est GFR (MDRD) Non-Af 115 BUN/Creatinine Ratio 12.7 Glucose 108 H Calcium 8.2 L Treatment and Re-Evaluation Narrative: Patient was informed that her tests are normal. Based on her sensitivity to touch and description of the pain we will treat with gabapentin for neuropathy of uncertain etiology. Discharge Plan Triage Chief Complaint: Edema ED Provider: Phillip Chen Dx/Rx/DC Orders Clinical Impression: Neuropathy of both feet, BMI 39.0-39.9,adult, Anxiety and depression Instructions: ED Neuropathy, Peripheral Prescriptions: New gabapentin 300 mg capsule 300 mg PO BID Qty: 90 0RF Rx Instructions: 1 twice a day for 3 days then 1 3 times a day Primary Care Provider: Care Physician,No Primary Referrals: Care Physician,No Primary [Primary Care Provider] - Doctor,Your [Non-Staff] - 1-2 Weeks Activity Restrictions/Additional Instructions: Take medicine as prescribed You will need to follow-up with your doctor. The name of your doctor is located on your insurance card issued to you. Disposition Disposition: Home, Self Care
--- OUTSIDE RECORDS SUMMARY | 2023-09-14 05:41 | XMS RPT_ITS | CCD ---
Author Name Unknown Address [address] [place] [address] Organization [facility] Care Team Providers Care Director Of Flight Operations Name Role Phone She Shah LPN Unavailable [...] ilable CANDI, PHYSICIAN Primary Care Unavailable KIRSTIN GARCIA Attending Unavailable Medications Current Medications Medication Drug [...] Drug Class(es) Dates Sig (Normalized) Sig (Original) [id number] 200 actuat albuterol 0.09 mg/actuat metered dose [...] Onset: 08-26-2022 Other aftercare (1 source) Other shelter (current) drug therapy; Translations: [Other shelter (current) drug therapy] Onset: 08-26-2022 Episodic Other [...] blood pressure 94 mm[Hg] No Pcp Required [facility] 08-26-2022 01:33-0500 Heart rate 79 /min No Pcp Required [facility] 08-26-2022 01:33-0500 Respiratory rate 18 /min No Pcp Required [facility] 08-26-2022 01:33-0500 SaO2% (BldA) [Mass fraction] 99 % No Pcp Required [facility] 08-26-2022 01:33-0500 Systolic blood pressure 135 mm[Hg] No Pcp Required [facility] 08-25-2022 22:52-0500 Body height 160 cm No Pcp Required [facility] 08-25-2022 22:52-0500 Body temperature 97.34 [degF] No Pcp Required [facility] 08-25-2022 22:52-0500 Body weight 89.5 kg No Pcp Required [facility] 05-11-2022 23:30-0400 Diastolic blood pressure 97 mm[Hg] No Pcp Required [facility] 05-11-2022 23:30-0400 Heart rate 92 /min No Pcp Required [facility] 05-11-2022 23:30-0400 Respiratory rate 18 /min No Pcp Required [facility] 05-11-2022 23:30-0400 SaO2% (BldA) [Mass fraction] 100 % No Pcp Required [facility] 05-11-2022 23:30-0400 Systolic blood pressure 120 mm[Hg] No Pcp Required [facility] 05-11-2022 21:33-0400 Body height 160 cm No Pcp Required [facility] 05-11-2022 21:33-0400 Body temperature 97.52 [degF] No Pcp Required [facility] 05-11-2022 21:33-0400 Body weight 87 kg No Pcp Required [facility] 02-26-2022 21:30-0400 Diastolic blood pressure 79 mm[Hg] Alysha Bilderback [facility] 02-26-2022 21:30-0400 Heart rate 71 /min Alysha Bilderback [facility] 02-26-2022 21:30-0400 Respiratory rate 16 /min Alysha Bilderback [facility] 02-26-2022 21:30-0400 SaO2% (BldA) [Mass fraction] 97 % Alysha Bilderback [facility] 02-26-2022 21:30-0400 Systolic blood pressure 118 mm[Hg] Alysha Bilderback [facility] 02-26-2022 19:13-0400 Body height 160 cm Alysha Bilderback [facility] 02-26-2022 19:13-0400 Body temperature 97.7 [degF] Alysha Bilderback [facility] 02-26-2022 19:13-0400 Body weight 75 kg Alysha Bilderback [facility] 12-14-2021 16:00-0400 Body temperature 98.6 [degF] Alysha Bilderback [facility] 12-14-2021 16:00-0400 Body weight 90 kg Alysha Bilderback [facility] 12-14-2021 16:00-0400 Diastolic blood pressure 100 mm[Hg] Alysha Bilderback [facility] 12-14-2021 16:00-0400 Heart rate 112 /min Alysha Bilderback [facility] 12-14-2021 16:00-0400 Respiratory rate 16 /min Alysha Bilderback [facility] 12-14-2021 16:00-0400 SaO2% (BldA) [Mass fraction] 95 % Alysha Baca [facility] 12-14-2021 16:00-0400 Systolic blood pressure 143 mm[Hg] Alysha Baca [facility] 09-08-2021 10:57-0500 Body height 167.64 cm Chely Verma DO Work Phone: [employer] Work Phone: 09-08-2021 10:57-0500 Body mass index (BMI) [Ratio] 30.71 kg/m2 Chely Verma DO Work Phone: [employer] [facility] [place] Work Phone: 09-08-2021 10:57-0500 Body surface area Derived from formula 1.96 m2 Chely Verma DO Work Phone: [employer] [facility] [place] Work Phone: 09-08-2021 10:57-0500 Body weight 86.3 kg Chely Verma DO Work Phone: [employer] [place] Work Phone: 09-08-2021 10:57-0500 Diastolic blood pressure 84 mm[Hg] Chely Verma DO Work Phone: [employer] [place] Work Phone: 09-08-2021 10:57-0500 Systolic blood pressure 138 mm[Hg] Chely Verma DO Work Phone: [employer] [place] Work Phone: 11-13-2016 12:53-0400 BMI (Body Mass Index) 32.17 kg/m2 She Shah LPN [facility] Work Phone: 11-13-2016 12:53-0400 Body Temperature 98.4 [degF] She Shah LPN [facility] Work Phone: 11-13-2016 12:53-0400 BP Diastolic 72 mm[Hg] She Shah LPN [facility] Work Phone: 11-13-2016 12:53-0400 BP Systolic 112 mm[Hg] She Shah LPN [facility] Work Phone: 11-13-2016 12:53-0400 Height 160.02 cm She Shah LPN [facility] Work Phone: 11-13-2016 12:53-0400 Pulse (Heart Rate) 85 /min She Shah LPN [facility] Now [facility] Work Phone: 11-13-2016 12:53-0400 Pulse Oximetry 98 % She Shah LPN [facility] Work Phone: 11-13-2016 12:53-0400 Respiratory Rate 12 /min She Shah LPN [facility] Work Phone: 11-13-2016 12:53-0400 Weight 82.37 kg She Shah LPN [facility] Work Phone: Encounters Encounter Date Encounter Type Care Provider Facility Start: 08-07-2023 End: 08-07-2023 ambulatory Facility:[facility] Start: 07-12-2023 End: 07-12-2023 ambulatory Facility:[facility] Start: 09-25-2022 End: 09-25-2022 Emergency department patient visit PHYSICIAN [facility] Start: 09-10-2022 ambulatory MD CHELY VERMA Facility:[id number] Start: 08-25-2022 End: 08-26-2022 Emergency department patient visit Phoebe Irving [facility] Emergency 02 Start: 05-11-2022 End: 05-11-2022 Emergency department patient visit Sebastian Salmeron [facility] Emergency Start: 02-26-2022 End: 02-26-2022 Emergency department patient visit Alysha Baca [facility] Emergency 12 Start: 01-21-2022 End: 01-21-2022 Emergency department patient visit Mr. Jarad Edmondsonjenidebra Facility:[id number] Start: 12-14-2021 End: 12-14-2021 Emergency department patient visit Alysha Baca [facility] Emergency 15 Start: 09-25-2021 Chart Update Chelysmith Noblesa DO Work Phone: [employer] Work Phone: Start: 09-08-2021 Office outpatient ne w 30 minutes Chelysmith Noblesa DO Work Phone: [employer] Work Phone: Start: 06-24-2018 End: 06-24-2018 Emergency department patient visit [facility] Start: 06-02-2018 End: 06-02-2018 Patient encounter procedure [facility] Start: 05-26-2018 End: 05-26-2018 Emergency department patient visit [facility] Start: 05-20-2018 End: 05-20-2018 Emergency department patient visit [facility] Start: 02-03-2018 Emergency department patient visit [facility] Start: 08-13-2017 End: 08-13-2017 Emergency department patient visit [facility] Encounter for gynecological examination (general) (routine) without abnormal findings Chelysmith Noblesa DO Work Phone: [employer] Work Phone: Procedures Date Procedure Procedure Detail Performing Clinician Start: 05-11-2022 End: 05-11-2022 EKG impression Sebastian W Faviola Hysterectomy Chely Verma D O Work Phone: Plan of Treatment Date Care Activity Detail Author Start: 09-10-2022 Patient encounter procedure Boubacar Trevino Start: 11-13-2016 End: 11-13-2016 Appointment Appointment [facility] Work Phone: [facility] Work Phone: Payers Date Payer Category Payer Unknown [id number] 1990 Unknown [id number] [id number] 1989 Unknown [id number] 2.16.8 [id number] 1989 Unknown [id number] 2.16.8 [id number] 1989 Unknown [id number] 2.16.8 [id number] 1989 Unknown [id number] 2.16.8 [id number] 1989 Unknown [id number] [id number]. [id number] 1989 Unknown [id number] [id number]. [id number] Unknown Worker's Compensation Social History Date Type Detail Facility [facility] Work Phone: Tobacco smoking consumption unknown [facility] Progress note 08-07-2023 Note Date & Type Note Facility 08-07-2023 Note HNO ID: [id number] Author: DANI DELEON PA-C Service: ? Author Type: Physician Pulp Machine Operator Type: Progress Notes Filed: 08/07/2023 13:21 Note [...] of intrauterine contraceptive device 01/22/08 Mirena/removed 05/17 [facility] Tobacco use Current Outpatient Medications Medication [...] Discussed otc pain relief. Dani Deleon PA-C [facility] Progress note 07-12-2023 Note Date & Type Note Facility 07-12-2023 Note HNO ID: [id number] Author: DALILA ZELAYA APRN.SURGICAL AIDES TEACHER Service: ? Author Type: Nurse Practitioner Type: Progress Notes Filed: 07/12/2023 12:37 Note Text: Subjective The history is provided by the patient and a friend. No quarrying manager was used. MALISSA Madrid is a 32 [...] have confirmed and edited as necessary, the [facility] Review of Systems Constitutional: Negative for chills [...] detail warranting prompt ER evaluation. Dalila Zelaya APRN.[facility] History of Present illness Narrative 08-11-2021 Note [...] Reviewed pathology report and surgery reports from [place]. Operative report indicates she had a total [...] or carcinoma in situ of the cervix [address] Work Phone: Summary Purpose Family History [...] DATE CREATED AUTHOR AUTHOR'S ORGANIZ ATION 06/27/2018 [facility] DATE CREATED AUTHOR AUTHOR'S ORGANIZ ATION 01/24/[address] [facility] DATE CREATED AUTHOR AUTHOR'S ORGANIZ ATION 09/09/2021 [employer] DATE CREATED AUTHOR AUTHOR'S ORGANIZ ATION 08/29/[address] [facility] DATE CREATED AUTHOR AUTHOR'S ORGANIZ ATION 09/12/2022 [facility] DATE CREATED AUTHOR AUTHOR'S ORGANIZ ATION 01/07/2023 [facility] DATE CREATED AUTHOR AUTHOR'S ORGANIZ ATION 08/08/2023 [facility] <item><item><item><item> Privacy Markings (unrecogniz ed section and [...] BE BASED ON THE PRIMARY CLINICAL RECORDS. [facility]. provides no warranty or guarantee of the accuracy or completeness of information in this document.
[2023-09-14 05:57] LABS: Anion Gap 4 (5-15); BUN 8 mg/dL (7-18); BUN/Creat Ratio 12.7 RATIO (10-20); Calcium,Total 8.2 mg/dL (8.5-10.1); Chloride 112 mmol/L (98-107); Creatinine, Serum 0.63 mg/dL (0.55-1.02); EST Glomerular Filtration Rate 115 mL/min (>60); Est Glom Filt Rate - Afr Amer 139 mL/min (>60); Estimated Creatinine Clearance 143.49 ml/min; Glucose 108 mg/dL (74-106); Potassium 3.9 mmol/L (3.5-5.1); Sodium Level 142 mmol/L (136-145)
[2023-09-14 06:01] LABS: Absolute Lymphocyte Count 3.01 X10^3/uL (0.83-4.51); Absolute Neutrophil Count 2.9 X10^3/uL (2.0-7.7); Basophil# 0.04 X10^3/uL; Basophil% 0.6 % (0-1); Eosinophil# 0.13 X10^3/uL; Eosinophils% 1.9 % (0-5); Hematocrit 41.9 % (37-47); Hemoglobin 13.9 g/dL (12.0-15.0); Lymphocyte # 3.01 X10^3/ul (0.83-4.51); Lymphocyte % 45.1 % (19-41); Mean Corp Hgb Conc 33.2 g/dL (32-36); Mean Corpuscular Hgb 29.4 pg (27.0-32.0); Mean Corpuscular Volume 88.6 fL (81-99); Mean Platelet Vol. 9.6 fl (6.2-12.0); Monocyte# 0.57 X10^3/uL; Monocyte% 8.5 % (0-10); NRBC Flagged by Analyzer 0 % (0-5); Neutrophil % 43.6 % (47-70); Platelet Count 266 K/mm3 (150-450); RBC Distribution Width CV 12.6 % (11.6-14.6); RBC Distribution Width SD 41.6 fl (35.1-43.9); Red Blood Count 4.73 M/mm3 (4.2-5.4); White Blood Count 6.7 K/mm3 (4.4-11.0)
[2023-09-14 06:03] LABS: Erythrocyte Sedimentation Rate 5 mm/hr (0-30)
[2023-09-14] MEDS: Gabapentin 100 MG Capsule 200 MG PO (06:22)
== END 2023-09-14 06:27 | disposition home or self-care (01) ==
PROVIDERS: Emergency Provider Emergency Medicine; Visit Provider Emergency Medicine
DX: G62.9 Polyneuropathy, unspecified (principal); F41.9 Anxiety disorder, unspecified; F32.A Depression, unspecified; F17.210 Nicotine dependence, cigarettes, uncomplicated; R20.8 Other disturbances of skin sensation; R20.0 Anesthesia of skin; R20.2 Paresthesia of skin; F17.290 Nicotine dependence, other tobacco product, uncomplicated; E66.9 Obesity, unspecified; Z68.39 Body mass index [BMI] 39.0-39.9, adult
CPT/HCPCS: 36415; 80048; 85025; 85652; 99282

== ENCOUNTER → 2024-05-11 | Outpatient (CLI) | payer MEDICAID, SELFPAY ==
[2024-05-11 12:41] LABS: Estradiol 50.7 pg/mL; Follicle Stimulating Hormone 6.8 mIU/mL
== END | disposition home or self-care (01) ==
PROVIDERS: Referring Provider Obstetrics & Gynecology; Visit Provider Obstetrics & Gynecology
DX: Z13.29 Encounter for screening for other suspected endocrine disorder (principal); N89.8 Other specified noninflammatory disorders of vagina; N95.1 Menopausal and female climacteric states
CPT/HCPCS: 36415; 82670; 83001; 84443; 87070; 87205